=== PATIENT | female | born 1945 | race African-American/Black ===

== ENCOUNTER 2023-07-23 06:09 | Emergency (ER) | payer MEDICAID, SELFPAY ==
[2023-07-23] VITALS (11 sets, daily range): BP systolic 91–114; BP diastolic 40–80; PULSE 68–95; RESP 16; TEMP 36.4–36.8; O2SAT 97–100
--- NOTE | 2023-07-23 06:15 | ED.GENADULT ---
HPI - General Adult General Chief complaint: Psychiatric Symptoms <Darci Vega MD - Last Filed: 07/23/23 06:19> Stated complaint: COMBATIVE, DEMENTED, OFF OF Rx <Darci Vega MD - Last Filed: 07/23/23 06:19> Time Seen by Provider: 07/23/23 06:19 <Darci Vega MD - Last Filed: 07/23/23 06:19> History of Present Illness HPI narrative: This is a 78-year-old group home patient with dementia presenting for combative behavior. She was at the group home and was trying to fight the staff there. She has been refusing to take her medications for 2 days. On my exam the patient is speaking incoherently. She has been shouting about her son, and she accused the MD being in the [employer]. She was combative with paramedics and nursing staff. She was sedated for the protection of the patient/staff. <Darci Vega MD - Last Filed: 07/23/23 06:19> Related Data Allergies/adverse reactions: Allergies Allergy/AdvReac Type Severity Reaction Status Date / Time No Known Allergies Allergy Verified 07/23/23 06:26 <Darci Vgea MD - Last Filed: 07/23/23 06:19> [facility]LY [facility] Social History Social History: Social History Substance use type: does not use and prescription drug <Darci Vega MD - Last Filed: 07/23/23 06:19> Exam Narrative: APPEARANCE: Patient is disheveled, Head: atraumatic. EYES: EOMI, NOSE: Atraumatic NECK: Trachea midline RESPIRATORY: No increased rate of breathing CARDIOVASCULAR: RRR, ABDOMINAL: Non-distended MUSCULOSKELETAl: No obvious deformities NEURO: Alert. Moving 4/4 extremities SKIN:: Warm, dry. Normal color PSYCHIATRIC: Normal affect <Darci Vega MD - Last Filed: 07/23/23 06:19> Course Vital Signs Vital signs: Vital Signs Temperature 98.1 F 07/23/23 06:48 Pulse Rate 95 07/23/23 06:48 Respiratory Rate 16 07/23/23 06:48 Blood Pressure 95/52 L 07/23/23 06:48 Pulse Oximetry 98 07/23/23 06:48 Temperature 97.6 F 07/23/23 14:30 Pulse Rate 80 07/23/23 14:30 Respiratory Rate 16 07/23/23 14:30 Blood Pressure 102/80 07/23/23 14:30 Pulse Oximetry 98 07/23/23 14:30 <Darci Vega MD - Last Filed: 07/23/23 06:19> Vital Signs Temperature 98.1 F 07/23/23 06:48 Pulse Rate 95 07/23/23 06:48 Respiratory Rate 16 07/23/23 06:48 Blood Pressure 95/52 L 07/23/23 06:48 Pulse Oximetry 98 07/23/23 06:48 Temperature 97.6 F 07/23/23 14:30 Pulse Rate 80 07/23/23 14:30 Respiratory Rate 16 07/23/23 14:30 Blood Pressure 102/80 07/23/23 14:30 Pulse Oximetry 98 07/23/23 14:30 <Saige Francisco MD - Last Filed: 07/23/23 18:58> Medical Decision Making MDM Narrative Medical decision making narrative: -Course: 78-year-old female presenting from the group home for psychiatric evaluation. Patient has been combative with staff. On my exam she is yelling incoherently and will not answer questions or participate in interview. She was physically aggressive with paramedics/staff has been sedated for safety. Psychiatric lab work has been ordered. Signed out to the oncoming physician pending completion of her workup. -DDX includes but is not limited to: dementia, medication noncompliance, delirium, UTI, pneumonia, dehydration, psychiatric illness -Co-morbidities complicating care: dementia -Social determinants of health: group home resident -Interventions: 5 mg Haldol, 2 mg and -Shared decision making / Disposition: <Darci Vega MD - Last Filed: 07/23/23 06:19> -Course: 78-year-old female presenting from the group home for psychiatric evaluation. Patient has been combative with staff. On my exam she is yelling incoherently and will not answer questions or participate in interview. She was physically aggressive with paramedics/staff has been sedated for safety. Psychiatric lab work has been ordered. Signed out to the oncoming physician pending
[2023-07-23] MEDS: LORazepam INJ (*CRX) 2 MG/ML VIAL IM (06:24)
[2023-07-23] MEDS: HALOPERIDOL LACTATE 5 MG/ML VIAL IM (06:24)
--- NOTE | 2023-07-23 06:29 | PC.NURSE ---
Patient has history of paranoid schizophrenia and dementia. Resident paperwork provided by [facility].
[2023-07-23 07:36] LABS: Basophils Percent Auto 0.4 % (0.2-1.2); Eosinophils Absolute Auto 0.1 K/mm3 (0-0.3); Eosinophils Percent Auto 1.7 % (0-4.4); Hematocrit 33.3 % (37.0-47.0); Hemoglobin 10.4 g/dL (12.0-15.0); Immature Granulocyte Absolute 0.03 K/mm3 (0.00-0.031); Immature Granulocyte Percent A 0.6 % (0-0.5); Lymphocytes Absolute Auto 1.17 K/mm3 (0.9-3.2); Lymphocytes Percent Auto 21.9 % (18.3-44.2); Mean Corpuscular HGB Conc 31.2 g/dl (32-36); Mean Corpuscular Hemoglobin 29.6 pg (26-34); Mean Corpuscular Volume 94.9 fl (80-100); Mean Platelet Volume 10.2 fl (7.4-10.4); Monocytes Absolute Auto 0.5 K/mm3 (0.1-0.6); Monocytes Percent Auto 9.6 % (2.6-8.5); Neutrophils Absolute Auto 3.5 K/mm3 (1.3-6.7); Neutrophils Percent Auto 65.8 % (45.5-73.1); Platelet Count Result 281 k/mm3 (150-375); Red Blood Count 3.51 M/mm3 (4.2-5.4); Red Cell Distribution Width 13.2 % (11.5-14.5); White Blood Count 5.3 K/mm3 (4.5-10.0)
[2023-07-23 07:47] LABS: Acetaminophen < 10 ug/mL (10-30); Ethanol < 10 mg/dL (<10); Salicylate < 1.0 mg/dL (2-20)
[2023-07-23 07:52] LABS: Alanine Aminotransferase 22 U/L (6-35); Albumin Level 3.6 g/dL (3.5-5.1); Alkaline Phosphatase 100 U/L (38-126); Anion Gap 8 mmol/L (8-16); Aspartate Amino Transferase 32 U/L (14-36); Bilirubin,Total 0.5 mg/dL (0.2-1.3); Blood Urea Nitrogen 23 mg/dL (7-17); Calcium 8.9 mg/dL (8.4-10.2); Carbon Dioxide 25 mmol/L (22-30); Chloride 106 mmol/L (98-107); Estimated CRCL calculation 47 ml/min; Estimated Glomerular Filt Rate > 60; Glucose 95 mg/dL (65-110); Potassium 4.3 mmol/L (3.4-5.0); Sodium 139 mmol/L (137-145)
[2023-07-23 08:24] LABS: Appearance Urine Clear (Clear); Bacteria Urine None Seen /hpf; Bilirubin Urine Negative (Negative); Blood Urine Negative (Negative); Color Urine Yellow (Yellow); Glucose Urine UA Negative (Negative); Granular Casts Urine Present /lpf; Ketones Urine Negative (Negative); Leukocyte Esterase Ur Trace LEU/UL (Negative); Nitrate Urine Negative (Negative); Protein Urine 1+ mg/dL (Negative); RBC Urine 0-2 /hpf (0-2); Specific Grav Ur 1.022 (1.001-1.035); Squamous Epithelial Cell Urine Few /hpf (Few); Urobilinogen Urine 0.2 mg/dL (<2.0); WBC Urine 0-5 /hpf
[2023-07-23 08:25] LABS: Add Urine Microscopic? YES
[2023-07-23 08:48] LABS: Influenza A QL RT-PCR Negative (Negative); Influenza B QL RT-PCR Negative (Negative); SARS-CoV-2 RNA PCR Negative (Negative)
[2023-07-23 08:58] LABS: Amphetamine Screen Urine Negative (Negative); Barbiturate Screen Urine Negative (Negative); Benzodiazepines Screen Urine Negative (Negative); Cannabinoid Screen Urine Negative (Negative); Cocaine Screen Urine Negative (Negative); Methadone Screen Urine Negative (Negative); Opiate Screen Urine Negative (Negative); Phencyclidine Screen Urine Negative (Negative)
--- NOTE | 2023-07-23 10:56 | PC.NURSE ---
Raffaele from [place] notified
--- NOTE | 2023-07-23 10:59 | PC.NURSE ---
Raffaele from [place] updated of pt condition
== END 2023-07-23 21:41 ==
PROVIDERS: Emergency Medicine; Emergency Provider Emergency Medicine
DX: F29 Unspecified psychosis not due to a substance or known physiological condition (principal); Z11.52 Encounter for screening for COVID-19; F03.92 Unspecified dementia, unspecified severity, with psychotic disturbance
CPT/HCPCS: 36415; 80053; 80307; 81001; 84443; 85025; 87636; 96372; 99284; J1630; J2060

== ENCOUNTER 2023-10-18 11:35 | Emergency (ER) | payer BC, SELFPAY ==
[2023-10-18] VITALS (9 sets, daily range): BP systolic 109–180; BP diastolic 58–99; PULSE 60–76; RESP 14–19; TEMP 36.6–37; O2SAT 96–100
--- NOTE | ~2023-10-18 | CT_ITS ---
EXAMINATION: CT brain wo con DATE: 10/18/2023 14:52 INDICATION: Transient alteration of awareness TECHNIQUE: Computed tomography (CT) of the head was performed without intravenous contrast. The mA wa s adjusted according to patient size. Iterative reconstruction technique was employed. Exam dose: 60 5.33 mGy-cm total exam DLP. COMPARISON: None FINDINGS: Examination is limited due to patient motion. Bilateral carotid siphon internal carotid artery calcifications. Nonspecific diminished attenuation o f the cerebral white matter, likely due to chronic small vessel ischemic changes. Bilateral basal ganglia calcifications. No intracranial mass lesion or hemorrhage or apparent cerebrovascular accident is noted on this limit ed examination. No subdural or epidural hematoma. The paranasal sinuses and mastoid air cells are well-developed and aerated. No fracture or bone destruction of the cranial vault. IMPRESSION: Limited examination due to motion; no acute intracranial finding Cerebral atherosclerosis and chronic small vessel ischemic changes of the cerebral white matter Reviewed, dictated and finalized at [facility] Reviewed, dictated and finalized at [facility] IMPRESSION: Limited examination due to motion; no acute intracranial finding Cerebral atherosclerosis and chronic small vessel ischemic changes of the cereb ral white matter
--- NOTE | 2023-10-18 11:49 | ECG_ITS ---
SEE SCANNED COPY FOR CONFIRMED REPORT MTDD
--- NOTE | 2023-10-18 12:01 | ED.GENADULT ---
HPI - General Adult General Chief complaint: Psychiatric Symptoms Stated complaint: BEHAVIORAL DISTURBANCE Time Seen by Provider: 10/18/23 12:00 History of Present Illness HPI narrative: 78-year-old female presents via EMS. EMS was called because patient was agitated and acting violently at her group home. She received a large dose of IM ketamine prior to transport to the emergency department. Patient does not provide any history. There are no outward signs of trauma. Related Data Allergies Allergy/AdvReac Type Severity Reaction Status Date / Time No Known Allergies Allergy Verified 07/23/23 06:26 Review of Systems Review of Systems: Gen.: Denies fevers or chills Eyes: Denies eye pain or visual change ENT: Denies congestion Respiratory: Denies shortness of breath or cough CV: Denies chest pain or palpitations GI: Denies abdominal pain nausea, emesis or diarrhea denies burning, urgency, frequency or hematuria Musculoskeletal: Denies back pain or muscle pain Neuro: Denies numbness, tingling, weakness or focal weakness Skin: Denies rash Except as documented, all other systems reviewed and negative PMFSH Social History Social History Substance use type: does not use Exam Narrative: GENERAL: Well-appearing, well-nourished, and in no acute distress. HEAD: Normocephalic, atraumatic. EYES: PERRLA and EOMI. ENT: Nares clear, no rhinorrhea or epistaxis. Mucous membranes moist. NECK: Supple. CHEST: Clear to auscultation. No respiratory distress. HEART: Regular rate and rhythm. No murmur heard. Normal peripheral pulses. ABDOMEN: Soft, nontender, nondistended, normal active bowel sounds. EXTREMITIES: Normal range of motion. No edema. SKIN: Warm, dry, no rash. NEURO: No focal deficits. Alert and oriented x3. PSYCH: Sleepy but responsive moves all extremities on command Course Vital Signs Vital signs: Vital Signs Temperature 98.3 F 10/18/23 11:38 Pulse Rate 73 10/18/23 11:38 Respiratory Rate 16 10/18/23 11:38 Blood Pressure 180/99 H 10/18/23 11:38 Pulse Oximetry 96 10/18/23 11:38 Temperature 98.0 F 04/12/24 15:00 Pulse Rate 70 10/18/23 15:00 Respiratory Rate 14 10/18/23 15:00 Blood Pressure 118/58 L 10/18/23 15:00 Pulse Oximetry 98 10/18/23 15:00 Medical Decision Making MDM Narrative Medical decision making narrative: 78 yo demented female presents for eval of aggresssive behavior as reported by NH staff. Pt received a large IM dose of ketamine enroute to our facility and does not provide history on arrival. mdm-delirium, dementia, toxic metabolic causes of ams. pt has not been receiving her daily meds for the past few days. labs are reassuring CT head as noted below IMPRESSION:? Limited examination due to motion; no acute intracranial finding Cerebral atherosclerosis and chronic small vessel ischemic changes of the cerebral white matter vitals have remained stable throughout the duration of her stay. Chart review=pt has had visits for similar in the past. Vital Signs Vital Signs: Vital Signs Temperature 98.3 F 10/18/23 11:38 Pulse Rate 73 10/18/23 11:38 Respiratory Rate 16 10/18/23 11:38 Blood Pressure 180/99 H 10/18/23 11:38 Pulse Oximetry 96 10/18/23 11:38 Temperature 98.0 F 10/18/23 15:00 Pulse Rate 70 10/18/23 15:00 Respiratory Rate 14 10/18/23 15:00 Blood Pressure 118/58 L 10/18/23 15:00 Pulse Oximetry 98 10/18/23 15:00 Lab Data 10/18/23 11:56 10/18/23 11:56 Labs: Lab Results 10/18/23 10/18/23 10/18/23 Range/Units 11:56 11:56 11:56 WBC 6.5 (4.5-10.0) K/mm3 RBC 3.80 L (4.2-5.4) M/mm3 Hgb 11.3 L (12.0-15.0) g/dL Hct 35.0 L (37.0-47.0) % MCV 92.1 (80-100) fl MCH 29.7 (26-34) pg MCHC 32.3 (32-36) g/dl RDW 13.8 (11.5-14.5) % Plt Count 274 (150-375) k/m
[2023-10-18 12:06] LABS: Basophils Percent Auto 0.3 % (0.2-1.2); Eosinophils Absolute Auto 0.1 K/mm3 (0-0.3); Eosinophils Percent Auto 1.7 % (0-4.4); Hemoglobin 11.3 g/dL (12.0-15.0); Immature Granulocyte Absolute 0.02 K/mm3 (0.00-0.031); Immature Granulocyte Percent A 0.3 % (0-0.5); Lymphocytes Absolute Auto 1.58 K/mm3 (0.9-3.2); Lymphocytes Percent Auto 24.5 % (18.3-44.2); Mean Corpuscular HGB Conc 32.3 g/dl (32-36); Mean Corpuscular Hemoglobin 29.7 pg (26-34); Mean Corpuscular Volume 92.1 fl (80-100); Mean Platelet Volume 10.2 fl (7.4-10.4); Monocytes Absolute Auto 0.7 K/mm3 (0.1-0.6); Monocytes Percent Auto 10.4 % (2.6-8.5); Neutrophils Absolute Auto 4.1 K/mm3 (1.3-6.7); Neutrophils Percent Auto 62.8 % (45.5-73.1); Platelet Count Result 274 k/mm3 (150-375); Red Cell Distribution Width 13.8 % (11.5-14.5); White Blood Count 6.5 K/mm3 (4.5-10.0)
[2023-10-18 12:17] LABS: Alanine Aminotransferase 18 U/L (6-35); Albumin Level 4.4 g/dL (3.5-5.1); Alkaline Phosphatase 120 U/L (38-126); Anion Gap 8 mmol/L (4-12); Aspartate Amino Transferase 24 U/L (14-36); Blood Urea Nitrogen 27 mg/dL (7-17); Calcium 9.3 mg/dL (8.4-10.2); Carbon Dioxide 25 mmol/L (22-30); Chloride 107 mmol/L (98-107); Estimated CRCL calculation 40 ml/min; Estimated Glomerular Filt Rate > 60; Glucose 145 mg/dL (65-110); Sodium 140 mmol/L (137-145)
[2023-10-18 12:25] LABS: Appearance Urine Clear (Clear); Bacteria Urine None Seen /hpf; Bilirubin Urine Negative (Negative); Blood Urine Negative (Negative); Color Urine Yellow (Yellow); Glucose Urine UA Negative (Negative); Ketones Urine Trace mg/dL (Negative); Leukocyte Esterase Ur Negative LEU/UL (Negative); Need Manual Microscopic Reviewed; Nitrate Urine Negative (Negative); Protein Urine 1+ mg/dL (Negative); RBC Urine 0-2 /hpf (0-2); Specific Grav Ur 1.022 (1.001-1.035); Squamous Epithelial Cell Urine Moderate /hpf (Few); WBC Urine 0-5 /hpf (0-3); pH Urine 6.5 (5.0-9.0)
[2023-10-18 12:26] LABS: Add Urine Microscopic? YES
[2023-10-18 12:29] LABS: Acetaminophen < 10 ug/mL (10-30); Salicylate < 1.0 mg/dL (2-20)
[2023-10-18 12:32] LABS: Amphetamine Screen Urine Negative (Negative); Barbiturate Screen Urine Negative (Negative); Benzodiazepines Screen Urine Negative (Negative); Cannabinoid Screen Urine Negative (Negative); Cocaine Screen Urine Negative (Negative); Methadone Screen Urine Negative (Negative); Opiate Screen Urine Negative (Negative); Phencyclidine Screen Urine Negative (Negative)
[2023-10-18 12:33] LABS: Ethanol < 10 mg/dL (<10)
[2023-10-18 12:44] LABS: Influenza A QL RT-PCR Negative (Negative); Influenza B QL RT-PCR Negative (Negative); RSV RNA, RT-PCR Negative (Negative); SARS-CoV-2 RNA PCR Negative (Negative)
[2023-10-18 13:31] LABS: Alanine Aminotransferase 18 U/L (6-35); Albumin Level 4.4 g/dL (3.5-5.1); Alkaline Phosphatase 118 U/L (38-126); Anion Gap 10 mmol/L (4-12); Aspartate Amino Transferase 24 U/L (14-36); Blood Urea Nitrogen 28 mg/dL (7-17); Calcium 9.8 mg/dL (8.4-10.2); Carbon Dioxide 23 mmol/L (22-30); Chloride 108 mmol/L (98-107); Estimated CRCL calculation 40 ml/min; Estimated Glomerular Filt Rate > 60; Glucose 147 mg/dL (65-110); Potassium 4.3 mmol/L (3.4-5.0); Sodium 141 mmol/L (137-145)
[2023-10-18 13:42] LABS: Ethanol < 10 mg/dL (<10)
== END 2023-10-18 17:09 ==
PROVIDERS: Emergency Medicine; Emergency Provider Emergency Medicine
DX: F03.911 Unspecified dementia, unspecified severity, with agitation (principal); Z20.822 Contact with and (suspected) exposure to COVID-19
CPT/HCPCS: 36415; 70450; 80053; 80307; 81001; 84443; 85025; 87637; 93005; 99284

== ENCOUNTER 2023-11-02 09:01 | Emergency (ER) | payer BC, SELFPAY ==
--- NOTE | ~2023-11-02 | CT_ITS ---
EXAMINATION: CT brain wo con DATE: 11/02/2023 11:26 INDICATION: Altered mental state TECHNIQUE: Computed tomography (CT) of the head was performed without intravenous contrast. The mA wa s adjusted according to patient size. Iterative reconstruction technique was employed. Exam dose: 83 2.33 mGy-cm total exam DLP. COMPARISON: October 18, 2023 CT brain FINDINGS: Examination is limited by motion. No intracranial mass lesion or hemorrhage, midline shift or mass defect is detected. Bilateral carotid siphon internal carotid artery calcifications. There is nonspecific diminished atte nuation in cerebral white matter, likely due to chronic small vessel ischemic changes. Bilateral basal ganglia calcifications. No subdural or epidural hematoma is detected. The mastoid air cells and paranasal sinuses are unremarkable. No fracture or bone destruction of the cranial vault is detected. IMPRESSION: Cerebral atherosclerosis and chronic small vessel ischemic changes in the cerebral white matter Limited examination due to motion. No apparent acute intracranial finding Reviewed, dictated and finalized at [facility] Reviewed, dictated and finalized at [facility].
[2023-11-02 09:04] VITALS: RESP 20; TEMP 36.3
--- NOTE | 2023-11-02 09:24 | ED.AMS ---
HPI - Altered Mental Status General Chief Complaint: Altered Mental Status Stated Complaint: AMS Time Seen by Provider: 11/02/23 09:02 Source: patient, EMS and old records reviewed Mode of arrival: EMS Limitations: altered mental status and clinical condition History of Present Illness HPI narrative: Patient is a 78 y/o female, with PMH of paranoid schizophrenia, psychosis, dementia, who presents to the ED via EMS with report of agitation. Patient is a resident of [facility]. Per [facility] report, patient and acting bizarrely today and talking about bodies. She became agitated and violent and was sent here for further evaluation. Per records, she has been seen in our ED for similar behaviors in the past, required sedation. Patient received Haldol at the correction prior to arrival. Patient unable to provide any information. Speaking/yelling incoherently, talking about the [employer], bodies, staff member's genitalia, raping children. No overt signs of trauma. Moving all extremities. Related Data Allergies Allergy/AdvReac Type Severity Reaction Status Date / Time No Known Allergies Allergy Verified 07/23/23 06:26 Review of Systems Review of Systems: ROS unobtainable: Yes unobtainable due to mental status PMFSH Past Medical History Medical History (Updated 11/02/23 @ 18:34 by Sharyn Amanda PA-C) Dementia Paranoid schizophrenia Personality disorder Social History Social History Substance use type: does not use Exam Narrative: GENERAL: Elderly, agitated, in no acute distress. HEAD: Normocephalic, atraumatic. ENT: Edentulous. RESPIRATORY: Airway patent, respirations nonlabored. CARDIOVASCULAR: Regular rate and rhythm ABDOMINAL: Does not appear distended. MUSCULOSKELETAL: Moves all extremities. No gross deformities. SKIN: Warm, dry, normal color. NEURO: Alert. Unable to answer any orientation questions, follow commands, or follow conversation. Speech rapid and pressured, no slurred speech or dysarthria. Speaking nonsense. No purposeful or intentional conversation. No ataxic movements. PSYCHIATRIC: Agitated, paranoid, delusional. Appears acutely psychotic. Course Vital Signs Vital signs: Vital Signs Temperature 97.3 F L 11/02/23 09:04 Respiratory Rate 20 11/02/23 09:04 Temperature 97.3 F L 11/02/23 09:04 Pulse Rate 72 11/02/23 14:00 Respiratory Rate 18 11/02/23 14:00 Blood Pressure 118/61 11/02/23 14:00 Pulse Oximetry 100 11/02/23 14:00 MDM - Altered Mental Status MDM Narrative Medical decision making narrative: Patient presented to ED from local correction with with our paranoid behavior, acute psychosis. History of schizophrenia, history of similar episodes seen in our facility, required sedation in the past. Patient refused any initial vital signs, refuse staff to draw blood. Became verbally and physically aggressive with staff, threatening staff. As such, she was sedated with Haldol and ativan for protection of patient and staff. Responded well to haldol/ativan. Resting comfortably. ED psych w/u initiated. Basic laboratory studies are unremarkable, consistent with previous records. Urine is consistent with infection. Will send for culture and treat. Do not feel this is cause of patient's acute psychosis today. Has had similar episodes in the past w/o infection. Patient initially refused Keflex in the ED, but later did take this. CT brain is without acute findings. Patient medically cleared to undergo psychiatric evaluation by crisis. Crisis evaluated patient. Patient declined SI or HI to crisis team. She has not made any of these statements to myself throughout ED stay. They did not feel patient meets criteria for inpatient psychiatric placement. Symptoms attributable to schizophrenia and dementia. Patient will be discharged back to correction. Advised to take antibiotics
[2023-11-02] MEDS: HALOPERIDOL LACTATE 5 MG/ML VIAL IM (09:26)
--- NOTE | 2023-11-02 09:30 | PC.NURSE ---
Remains aggitated and combative. Pt screaming and cursing at staff. Attempts to hit staff.
--- NOTE | 2023-11-02 09:32 | PC.NURSE ---
breakfast tray ordered
[2023-11-02] MEDS: LORazepam INJ (*CRX) 2 MG/ML VIAL IM (09:47)
[2023-11-02 10:41] VITALS: BP 137/75; PULSE 75; RESP 18; O2SAT 100
[2023-11-02 11:31] LABS: Basophils Percent Auto 0.4 % (0.2-1.2); Eosinophils Percent Auto 0.6 % (0-4.4); Hematocrit 34.7 % (37.0-47.0); Hemoglobin 11.2 g/dL (12.0-15.0); Immature Granulocyte Absolute 0.02 K/mm3 (0.00-0.031); Immature Granulocyte Percent A 0.3 % (0-0.5); Lymphocytes Absolute Auto 1.18 K/mm3 (0.9-3.2); Lymphocytes Percent Auto 17.5 % (18.3-44.2); Mean Corpuscular HGB Conc 32.3 g/dl (32-36); Mean Corpuscular Hemoglobin 30.3 pg (26-34); Mean Corpuscular Volume 93.8 fl (80-100); Mean Platelet Volume 10.3 fl (7.4-10.4); Monocytes Absolute Auto 0.6 K/mm3 (0.1-0.6); Monocytes Percent Auto 8.6 % (2.6-8.5); Neutrophils Absolute Auto 4.9 K/mm3 (1.3-6.7); Neutrophils Percent Auto 72.6 % (45.5-73.1); Platelet Count Result 264 k/mm3 (150-375); Red Cell Distribution Width 14.1 % (11.5-14.5); White Blood Count 6.8 K/mm3 (4.5-10.0)
[2023-11-02 11:37] LABS: Appearance Urine Cloudy (Clear); Bacteria Urine 4+ /hpf; Bilirubin Urine Negative (Negative); Blood Urine Negative (Negative); Color Urine Yellow (Yellow); Glucose Urine UA Negative (Negative); Ketones Urine Negative (Negative); Leukocyte Esterase Ur 3+ LEU/UL (Negative); Nitrate Urine Positive (Negative); Non Pathogenic Casts 0-2; Protein Urine Trace mg/dL (Negative); RBC Urine 0-2 /hpf (0-2); Specific Grav Ur 1.018 (1.001-1.035); Squamous Epithelial Cell Urine None Seen /hpf (Few); Urobilinogen Urine 0.2 mg/dL (<2.0); WBC Urine >100 /hpf (0-3)
[2023-11-02 11:43] LABS: Alanine Aminotransferase 18 U/L (6-35); Albumin Level 4.3 g/dL (3.5-5.1); Alkaline Phosphatase 106 U/L (38-126); Anion Gap 8 mmol/L (4-12); Aspartate Amino Transferase 28 U/L (14-36); Bilirubin,Total 0.4 mg/dL (0.2-1.3); Blood Urea Nitrogen 34 mg/dL (7-17); Calcium 9.2 mg/dL (8.4-10.2); Carbon Dioxide 25 mmol/L (22-30); Chloride 109 mmol/L (98-107); Estimated CRCL calculation 40 ml/min; Estimated Glomerular Filt Rate > 60; Glucose 120 mg/dL (65-110); Potassium 4.3 mmol/L (3.4-5.0); Sodium 142 mmol/L (137-145)
[2023-11-02 11:57] LABS: Add Urine Microscopic? YES
[2023-11-02 11:59] LABS: Acetaminophen < 10 ug/mL (10-30); Ethanol < 10 mg/dL (<10); Salicylate < 1.0 mg/dL (2-20)
[2023-11-02 12:05] VITALS: BP 145/74; PULSE 79; RESP 16; O2SAT 100
--- NOTE | 2023-11-02 12:06 | PC.NURSE ---
Sleeps unless aroused. Pt is combative when awaken.
[2023-11-02 12:07] LABS: SARS-CoV-2 RNA PCR Negative (Negative)
[2023-11-02 12:30] LABS: Amphetamine Screen Urine Negative (Negative); Barbiturate Screen Urine Negative (Negative); Benzodiazepines Screen Urine Negative (Negative); Cannabinoid Screen Urine Negative (Negative); Cocaine Screen Urine Negative (Negative); Methadone Screen Urine Negative (Negative); Opiate Screen Urine Negative (Negative); Phencyclidine Screen Urine Negative (Negative)
[2023-11-02 13:05] VITALS: BP 127/59; PULSE 69; RESP 16; O2SAT 100
--- NOTE | 2023-11-02 13:27 | PC.NURSE ---
Sleeping. Easily aroused.
[2023-11-02 13:30] VITALS: BP 118/68; PULSE 70; RESP 18; O2SAT 100
[2023-11-02 14:00] VITALS: BP 118/61; PULSE 72; RESP 18; O2SAT 100
--- NOTE | 2023-11-02 15:45 | PC.NURSE ---
Sleeping. Easily aroused but falls back to sleep quickly.
--- NOTE | 2023-11-02 17:07 | PC.NURSE ---
Awake. Eating dinner. Pt swats at nurse when nurse approaches.
--- NOTE | 2023-11-02 18:00 | PC.NURSE ---
Pt incontinent of urine. Bed linen changed. Pt refuses to wear a gown or any clothing. Pt beligerent and cursing at staff.
--- NOTE | 2023-11-02 19:11 | PC.NURSE ---
To [facility] via ems. Condition stable.
== END 2023-11-02 19:11 ==
PROVIDERS: Emergency Provider Physician Assistant
DX: N30.00 Acute cystitis without hematuria (principal); F20.0 Paranoid schizophrenia; F03.90 Unspecified dementia, unspecified severity, without behavioral disturbance, psychotic disturbance, mood disturbance, and anxiety; Z11.52 Encounter for screening for COVID-19; I67.2 Cerebral atherosclerosis
CPT/HCPCS: 36415; 70450; 80053; 80307; 81001; 84443; 85025; 87077; 87086; 87088; 87186; 87635; 96372; 99284; J1630; J2060

== ENCOUNTER 2024-10-08 21:39 | Emergency (ER) | payer BC, SELFPAY ==
--- NOTE | 2024-10-08 21:51 | ED_ITS ---
HPI - Psych General Chief Complaint: Psychiatric Symptoms Stated Complaint: INVOLUNTARY NASIM-PSYCH EVAL Time Seen by Provider: 10/08/24 21:43 History of Present Illness HPI Narrative: Patient is a 79-year-old female presents to the ER from a local senior living facility due to agitation. She is unable to provide any medical history upon evaluation. Patient is yelling obscenities at staff and was combative with EMS personnel prior to arrival. According to her record patient has a history of schizophrenia and psychosis. Related Data Allergies Allergy/AdvReac Type Severity Reaction Status Date / Time No Known Allergies Allergy Verified 07/23/23 06:26 Review of Systems Review of Systems: All systems reviewed & are unremarkable except as noted in HPI and below PMFSH Past Medical History Medical History Personality disorder Dementia Paranoid schizophrenia Social History Social History Substance use type: does not use Exam Narrative: GENERAL: Well appearing, well-nourished, non-toxic, in no acute distress. HEAD: Normocephalic, atraumatic. NECK: Supple. No adenopathy, no masses. RESPIRATORY: Airway patent, respirations nonlabored. Clear to auscultation bilaterally, no rales, rhonchi, wheezing. CARDIOVASCULAR: Regular rate and rhythm without murmurs, rubs, or gallops. Peripheral pulses 2+ and equal bilaterally. ABDOMINAL: Soft, nondistended, no hepatosplenomegaly. Normoactive BS. MUSCULOSKELETAL: Moves all extremities. Strength/ROM intact without gross deformities. SKIN: Warm, dry, normal color. No rashes. NEURO: Sleeping following medication administration. No ataxic movements. Course Vital Signs Vital signs: Vital Signs Pulse Rate 101 H 10/08/24 22:48 Respiratory Rate 20 10/08/24 22:48 Blood Pressure 135/110 H 10/08/24 22:48 Pulse Oximetry 97 10/08/24 22:48 Pulse Rate 101 H 10/08/24 22:48 Respiratory Rate 20 10/08/24 22:48 Blood Pressure 135/110 H 10/08/24 22:48 Pulse Oximetry 97 10/08/24 22:48 MDM - Psych MDM Narrative Medical decision making narrative: Patient is a 79-year-old female presents to the ER from a local senior living facility due to agitation. She is unable to provide any medical history upon evaluation. Patient is yelling obscenities at staff and was combative with EMS personnel prior to arrival. According to her record patient has a history of schizophrenia and psychosis. Patient was administered Zyprexa 10 mg IM, Ativan 2 mg IM, Haldol 5 mg IM. After the Haldol administration patient finally settled in and fell asleep. A head to toe physical exam was performed and there were no acute abnormal findings. No lab work or imaging was necessary. Patient is medically clear to return to her senior living facility. Differential Diagnosis Differential diagnosis: Likely acute psychosis, drug-induced psychotic disorder and acute anxiety Discharge Plan Discharge Clinical Impression: Dementia, Agitation due to dementia Patient Disposition: [facility] Living Condition: Stable Instructions: Antibiotic Form, Dementia (ED) Additional Instructions: Please return to the ER with any worsening symptoms. Follow-up with primary care provider as soon as possible. Take all medications as prescribed, including regularly scheduled medications. Patient Language: Mexican Prescriptions: No Action cephalexin 500 mg capsule 500 mg PO Q6H 7 Days Qty: 28 0RF Follow-up/Referrals: UNKNOWN,DOCTOR [Primary Care Provider] - Stand Alone Forms: Prison Discharge Time of Disposition: 01:26
[2024-10-08] MEDS: OLANZapine 10 MG INJ VIAL IM (22:02)
[2024-10-08] MEDS: LORazepam INJ (*CRX) 2 MG/ML VIAL IM (22:02)
--- NOTE | 2024-10-08 22:11 | PC.NURSE ---
Pt has continued to scream and thrash since arriving in ED. pt refuses vital signs and shakes fist at staff when attempting to obtain vitals. Pt arrived with soiled clothing and linen and is refusing to allow staff to change linens.
--- OUTSIDE RECORDS SUMMARY | 2024-10-08 22:12 | XMS_ITS | CONTINUITY OF CARE DOCUMENT ---
Author Name luther sloan Address Unknown Organization [facility] Address [id number] [place] [address] [address] [place] [address] Phone [phone] Care Team Providers Care Emd Teacher Name Role Phone Keerthi Núñez MD Unavailable Keerthi Núñez MD Unavailable INSURANCE PROVIDERS Payer name Policy type / Coverage type [place] red libertarian ID [facility] [id number]
[2024-10-08] MEDS: HALOPERIDOL LACTATE 5 MG/ML VIAL IM (22:47)
[2024-10-08 22:48] VITALS: BP 135/110; PULSE 101; RESP 20; O2SAT 97
--- NOTE | 2024-10-08 22:52 | PC.NURSE ---
Pt is now spitting in room
--- NOTE | 2024-10-08 23:56 | PC.NURSE ---
This RN spoke with Pts guardian and updated her on pts condition and confirmed that pt is okay to go back to [facility] once cleared by EDP. Pts legal guardian Cristal ([phone]) stated that pt lives at [facility] and should return to the facility upon discharge.
[2024-10-09 02:48] VITALS: PULSE 67; RESP 14; O2SAT 97
--- NOTE | 2024-10-09 02:49 | PC.NURSE ---
Report called to nurse bo [facility] @[phone]. Nurse made aware that pts legal guardian has been contacted regarding pts care plan Before dispo pt was given bed bath and full linen change. Pt was soiled in what appeared to be days old feces. Pt looked and smelled as if she had not be bathed in weeks.
== END 2024-10-09 03:09 ==
PROVIDERS: Emergency Provider Registered Nurse
DX: F03.911 Unspecified dementia, unspecified severity, with agitation (principal)
CPT/HCPCS: 96372; 99284; J1630; J2060; J2359